=== PATIENT | male | born 1975 | race Caucasian/White ===

== ENCOUNTER 2017-01-22 10:33 | Emergency (ER) | payer BC ==
--- NOTE | ~2017-01-22 | EKG ---
PATIENT: OSCAR PETER UNIT #: [id number] Ventricular Rate: 70 BPM Atrial Rate: 70 BPM P-R Interval: 144 ms QRS Duration: 92 ms Q-T Interval: 364 ms QTC Calculation(Bezet): 393 ms P [place]: 47 degrees Calculated R [place]: 15 degrees Calculated T [place]: 16 degrees Diagnosis Line: Normal sinus rhythm Diagnosis Line: Minimal voltage criteria for LVH, may be normal Diagnosis Line: variant Diagnosis Line: Early repolarization Diagnosis Line: Borderline ECG Diagnosis Line: Diagnosis Line: Confirmed by LAMAR KINNEY MD ([id number]) on Diagnosis Line: 01/26/2017 11:02:32 AM INTERPRETING MD: GREGORIA HEADLEY
--- NOTE | ~2017-01-22 | CR63 ---
[facility]. [facility] A Service of [facility] & [facility] RADIOLOGY TEXT RESULTS PATIENT: OSCAR PETER LOCATION: SED : 77 UNIT #: [id number] AGE: [address]: Flaquito Bethea MD SEX: M ORDER DR: [id number] [address] [address] [id number] MR#: [id number] Acc #: [id number] NAME: OSCAR PETER : 1975 SEX: M STUDY DATE/TIME: 01/22/2017 10:55 UNIT: SED ROOM: STUDY DESCRIPTION: CR Chest 2 View Attending Physician: Flaquito Bethea M.D. Ordering Physician: Flaquito Bethea M.D. Primary Care Physician: No Primary Care Physician MEDICAL IMAGING REPORT This report is preliminary unless electronic signature is present. EXAM Two-view chest 01/22/2017 INDICATIONS Shortness of air. Shortness of air that began an hour ago. Right sided carotid pulsating. Tobacco abuse but quit a year ago. Two-view chest was performed. COMPARISON STUDIES No comparisons. FINDINGS Cardiac silhouette is borderline in size. The vascularity is unremarkable. There is bronchovascular crowding due to low lung volumes. No effusion, dense consolidation or pneumothorax. IMPRESSION Borderline cardiac size and low lung volumes otherwise negative chest. Dictated by... Marcel Gallegos M.D. THIS IS AN ELECTRONICALLY VERIFIED REPORT Marcel Gallegos M.D. at 01/22/2017 5:05 PM Mckayla TD: 01/22/2017 15:21 JOB #: [id number] MEDICAL IMAGING REPORT Page 1 of 1
[2017-01-22] MEDS ORDERED: LIBRIUM (10:55)
== END 2017-01-22 12:26 | disposition home or self-care (01) ==
LOC: SED 10:33
DX: F41.0 Panic disorder [episodic paroxysmal anxiety] (principal)
CPT/HCPCS: 71020; 93005; 99285